=== PATIENT | female | born 2000 | race Caucasian/White ===

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

== ENCOUNTER → 2021-05-22 | Outpatient (REF) | payer OTHER | LOC: M SFHCWAGY 13:08 | PROVIDERS: ATTEND Advanced Practice Midwife | DX: Z12.4 Encounter for screening for malignant neoplasm of cervix (principal); R87.615 Unsatisfactory cytologic smear of cervix ==

== ENCOUNTER 2021-06-23 12:23 | Emergency (ER) | payer OTHER ==
[~2021-06-23] VITALS: Ht 160 cm; Wt 74.8 kg
[2021-06-23] MEDS ORDERED: ESTA0.25 (13:03)
--- NOTE | 2021-06-23 13:51 | REP ---
INDICATION: fall, finger laceration. COMPARISON: None. TECHNIQUE: Four views of the right hand. FINDINGS: Four views of the right hand demonstrate demonstrates soft tissue irregularity dorsal and ulnar aspects of the over the ring and small fingers. No fracture is seen. No opaque foreign body is noted. IMPRESSION: Soft tissue irregularity as above. No fracture or subluxation seen. <Electronically signed by Roger Crowder > 06/23/21 [id number]
[2021-06-23] MEDS ORDERED: DERMABOND TOPICAL SKIN ADHESIVE TOP ONE ×2 (14:05)
[2021-06-23 14:52] VITALS: BP 130/84
== END 2021-06-23 14:55 | disposition home or self-care (01) ==
LOC: M ED 12:23
DX: S61.214A Laceration without foreign body of right ring finger without damage to nail, initial encounter (principal); W01.110A Fall on same level from slipping, tripping and stumbling with subsequent striking against sharp glass, initial encounter; Y92.009 Unspecified place in unspecified non-institutional (private) residence as the place of occurrence of the external cause; Y93.9 Activity, unspecified; Y99.9 Unspecified external cause status

== ENCOUNTER → 2021-08-29 | Outpatient (REF) | payer OTHER ==
[~2021-08-29] MED LIST: ESTA0.25
[2021-08-29 17:19] LABS: RSV AMPLIFICATION NEGATIVE (NEGATIVE)
== END ==
LOC: M LAB REF 16:12
PROVIDERS: ATTEND Physician Assistant
DX: R05.9 Cough, unspecified (principal); R50.9 Fever, unspecified

== ENCOUNTER → 2021-10-09 | Outpatient (REF) | payer OTHER | LOC: M PLALAB 13:07 | PROVIDERS: ATTEND Advanced Practice Midwife | DX: Z12.4 Encounter for screening for malignant neoplasm of cervix (principal) ==

== ENCOUNTER 2021-12-23 06:35 | Emergency (ER) | payer OTHER ==
[~2021-12-23] VITALS: Ht 157.5 cm; Wt 70.5 kg
[2021-12-23] MEDS ORDERED: GI COCKTAIL 50ML BTL(HYOSCYAMINE/MAALOX/LIDOCAINE VISCOUS)(1:3:1) PO ONE (09:00)
[2021-12-23 10:45] VITALS: BP 134/79
== END 2021-12-23 11:04 | disposition home or self-care (01) ==
LOC: M ED 06:35
DX: R07.9 Chest pain, unspecified (principal); F41.8 Other specified anxiety disorders; M26.609 Unspecified temporomandibular joint disorder, unspecified side; R94.31 Abnormal electrocardiogram [ECG] [EKG]

== ENCOUNTER → 2022-05-21 | Outpatient (REF) | payer OTHER | LOC: M PLALAB 11:11 | PROVIDERS: ATTEND Advanced Practice Midwife | DX: R10.2 Pelvic and perineal pain (principal); N89.8 Other specified noninflammatory disorders of vagina; Z11.3 Encounter for screening for infections with a predominantly sexual mode of transmission ==

== ENCOUNTER → 2023-01-05 | Outpatient (REF) | payer OTHER ==
[2023-01-05 14:00] LABS: CHOLESTEROL RISK RATIO 3.43 (<5); HDL CHOLESTEROL 71.6 MG/DL (>40); NON-HDL-C 174.4 MG/DL
[2023-01-05 14:03] LABS: THYROID STIMULATING HORMONE 2.747 uIU/ML (0.55-4.78)
== END ==
LOC: M LAB REF 12:32
PROVIDERS: ATTEND Nurse Practitioner Family
DX: R79.89 Other specified abnormal findings of blood chemistry (principal); E66.3 Overweight

== ENCOUNTER 2025-04-04 15:32 | Emergency (ER) | payer BC, MEDICAID, OTHER ==
[~2025-04-04] VITALS: Ht 157.5 cm; Wt 70.3 kg
[2025-04-04] MEDS: FLUORESCEIN OPHTH 1 MG STRIP OU ONE (17:20)
[2025-04-04] MEDS: PROPARACAINE 0.5% OPHTH SOL 15ML OU ONE (17:20)
[2025-04-04 17:54] VITALS: BP 121/80; TEMP 98.9; O2SAT 99
[2025-04-04] MEDS ORDERED: ARTIDRO OP (18:11)
[2025-04-04] MEDS ORDERED: [UNRECOGNIZED DRUG - CODE] OP (18:11)
== END 2025-04-04 18:20 | disposition home or self-care (01) ==
LOC: M ED 15:32
DX: H11.423 Conjunctival edema, bilateral (principal); Z79.899 Other long term (current) drug therapy